=== PATIENT | male | born 1965 | race Caucasian/White ===

== ENCOUNTER 2021-10-12 20:06 | Observation (INO) ==
--- NOTE | 2021-10-12 20:19 | ED.PDOC ---
General ED Provider: Dr. PHIL CASEY Chief Complaint: Chest Pain Stated Complaint: chest pain an hour ago, relieved with 2 NTG, hx CAD, traveling in this area, headlight out on his car, night time, stopped in ER Time Seen by Provider: 10/12/21 20:17 Mode of Arrival: Walk-In Information Source: Patient Exam Limitations: No limitations Nursing and Triage Documentation Reviewed and Agree: Yes Does patient meet sepsis criteria?: No System Inflammatory Response Syndrome: Not Applicable Sepsis Protocol: For patient's 13 years and over: Temp is 96.8 and below OR 101 and greater Pulse >90 BPM Resp >20/minute Acutely Altered Mental Status Are patient's symptoms suggestive of a new infection, such as: -Pneumonia -Skin, Soft Tissue -Endocarditis -UTI -Bone, Joint Infection -Implantable Device -Acute Abdominal Infection -Wound Infection -Meningitis -Blood Stream Catheter Infection -Unknown Cardiovascular Complaint Exam Chest Pain Complaint/Exam Onset: Gradual Duration: few min Symptoms Are: Resolved Timing: Constant Initial Severity: Moderate Current Severity: None Location: Reports Discrete Pain Radiates: Reports None Character: Reports Dull and Aching Aggravating: Reports Movement Alleviating: Reports Rest and Nitro Related History: Reports Similar episode Related Surgical History: Reports Cardiac Cath and PTCA/Stent History of Healthcare-Acquired Pneumonia: Reports No AMI/ACS Risk Factors: Reports Myocardial Infarction and Nitroglycerine use TAD Risk Factors: Reports Hypertension Pulmonary Embolism Risk Factors: Reports None Prior Care for this Complaint: Yes Recent Stress Test: No Recent Echo/LV Function: Yes JVD Present: No Subcutaneous Emphysema Present: No Diminshed Breath Sounds: No Reproducible Chest Wall Pain: No Bilateral Pulses Present: No Unequal Pulses Noted: No Review of Systems Review Of Systems Constitutional: Reports No symptoms Eyes: Reports No symptoms Ears, Nose, Mouth, Throat: Reports No symptoms Respiratory: Reports No symptoms Cardiac: Reports No symptoms GI: Reports No symptoms : Reports No symptoms Musculoskeletal: Reports No symptoms Skin: Reports No symptoms Neurological: Reports No symptoms Endocrine: Reports No symptoms Hematologic/Lymphatic: Reports No symptoms All Other Systems: Reviewed and Negative [facility] Medical History (Updated 10/13/21 @ 00:14 by SONIA DANIELS) Coronary artery arteriosclerosis Diabetes Hypercholesteremia Hypertension Myocardial infarct Family History (Updated 10/13/21 @ 00:11 by SONIA DANIELS) Other No known health problems Social History (Updated 10/13/21 @ 00:15 by SONIA DANIELS) Smoking and tobacco status: Never smoker Alcohol intake: never Substance use type: does not use Surgical History (Updated 10/13/21 @ 00:14 by SONIA DANIELS) History of heart artery stent Physical Exam Physical Exam Appearance: Reports Well-appearing Ill-appearing: None Pain Distress: None Eyes: Reports BRIAN ENT: Reports Oropharynx normal Neck: Supple Respiratory: Reports Airway patent and Breath sounds clear Cardiovascular: Reports RRR and Pulses normal GI/: Reports Nontender and Bowel sounds hyperactive Musculoskeletal: Reports Normal strength and ROM intact Skin: Reports Warm and Dry Neurological: Reports Sensation intact, Motor intact and Alert Psychiatric: Reports Affect appropriate and Mood appropriate Interpretation Radiology Interpretation Radiology Interpretation By: Radiologist Radiology Results: Negative Exam Interpreted: Portable CXR EKG Interpretation Time of EKG #1: 20:15 Rate: Normal Rhythm: Sinus Ectopy: None [place]: NL ST Segment: Normal Critical Care Note Critical Care Note Total Critical Care Time (mins): 0 Course Course Hematology/Chemistry: 10/12/21 20:50 10/12/21 20:50 Orders, Labs, Meds: Lab Review 10/12/21 10/12/21 10/12/21 20:50 20:50 23:05 WBC 5.81 RBC 5.33 Hgb 14.0 Hct 42.1 MCV 79.0 L MCH 26.3 L MCHC 33.3 RDW Coeff of [place] 13.5 Plt Count 205 Immature Gran % (Auto) 0.7 Neut % (Auto) 61.1 Lymph % (Auto) 27.0 [place] % (Auto) 8.1 Eos % (Auto) 2.6 Baso % (Auto) 0.5 Neut # (Auto) 3.6 Lymph # (Auto) 1.6 [place] # (Auto) 0.5 Eos # (Auto) 0.2 Baso # (Auto) 0.0 Immature Gran # (Auto) 0.0 Sodium 128.9 L Potassium 4.27 Chloride 96.1 L Carbon Dioxide 22.2 Anion Gap 14.87 BUN 15.1 Creatinine 0.84 Estimated GFR (MDRD) 95.00 BUN/Creatinine Ratio 17.97 Glucose 552.0 H* Calcium 9.18 Total Bilirubin 0.84 AST 25.6 ALT 18.2 Alkaline Phosphatase 111.8 Troponin I < 0.012 Total Protein 6.95 Albumin 4.42 Globulin 2.53 Albumin/Globulin Ratio 1.74 SARS-CoV-2 Ag (Rapid) Negative Orders Category Date Time Status ADMIT OBSERVATION [PLACE PATIENT OBSERVATION] .TO ADMISSION 10/12/21 22:46 Active MEDSURG (MONITORED BED) EKG-(ED ONLY) Stat CARDIO 10/12/21 20:49 Completed EKG-(IP & OP ONLY) DAILY CARDIO 10/13/21 06:00 Completed EKG-(IP & OP ONLY) DAILY CARDIO 10/14/21 06:00 Ordered OXYGEN Routine CARDIO 10/12/21 22:59 Active ACTIVITY .BR with BRP CARE 10/12/21 22:59 Active IP: INSERT SALINE LOCK ONCE CARE 10/12/21 22:59 Active TELEMETRY MONITORING TELE CARE 10/12/21 22:46 Active TELEMETRY MONITORING TELE CARE 10/12/21 22:59 Completed VITAL SIGNS Q8HR CARE 10/12/21 22:59 Completed CARDIAC DIET DIETARY 10/12/21 Breakfast Ordered ACCUCHECK (ED) [ED ACCUCHECK ASSESSMENT] .ONCE EMERGENCY 10/12/21 22:01 Active CBC W/ AUTO DIFF Stat LAB 10/12/21 20:50 Completed COMPREHENSIVE METABOLIC PANEL Stat LAB 10/12/21 20:50 Completed COVID-19 ANTIGEN TEST Stat LAB 10/12/21 23:05 Completed CREATINE KINASE Q8H LAB 10/13/21 04:57 Completed TROPONIN I Q8H LAB 10/13/21 04:57 Completed TROPONIN I Stat LAB 10/12/21 20:50 Completed URINALYSIS C & S IF INDICATED Stat LAB 10/12/21 22:59 Completed 0.9 % Sodium Chloride [Saline Flush] MEDS 10/13/21 05:00 Active 1 syr IVF Q8HR Acetaminophen [Tylenol] MEDS 10/12/21 22:59 Active 650 mg PO Q4H PRN Atropine Sulfate Inj [Atropine Sulfate Pfs] MEDS 10/12/21 22:59 Active 0.5 mg IVP ONCE PRN Insulin Regular, Human [Humulin R] MEDS 10/12/21 21:20 Discontinued 20 unit IVP ONCE ONE Insulin Regular, Human [Humulin R] MEDS 10/12/21 22:33 Discontinued 20 unit IVP ONCE ONE Nitroglycerin [Nitrostat] MEDS 10/12/21 22:59 Active 0.4 mg SL Q5MIN X 3 DOSES PRN CHEST, 1V AP ONLY Stat RADS 10/12/21 20:49 Completed Medications Generic Name Dose Route Start Last Admin Trade Name Freq PRN Reason Stop Dose Admin Acetaminophen 650 mg 10/12/21 22:59 Acetaminophen 325 Mg Tablet PO Q4H PRN Headache Aspirin 81 mg 10/13/21 09:00 Aspirin 81 Mg Tab.Chew PO DAILY [facility] Atorvastatin Calcium 80 mg 10/13/21 21:00 Atorvastatin Calcium 20 Mg Tablet PO BEDTIME [facility] Atropine Sulfate 0.5 mg 10/12/21 22:59 Atropine Sulfate Inj 1 Mg/10 Ml Disp.Syrin IVP ONCE PRN Symptomatic Bradycardia Carvedilol 6.25 mg 10/13/21 09:00 Carvedilol 6.25 Mg Tablet PO BIDWM [facility] Clopidogrel Bisulfate 75 mg 10/13/21 09:00 Clopidogrel Bisulfate 75 Mg Tablet PO DAILY [facility] Insulin Glargine 52 unit 10/13/21 21:00 Insulin Glargine,Hum.Rec.Anlog 100 Units/Ml SUBCUT BEDTIME [facility] Insulin Human Regular 0 unit 10/13/21 00:04 10/13/21 06:14 Insulin Regular, Human 100 Unit/Ml (3ml) Vial SUBCUT 3 unit PRN PRN Administration Hyperglycemia Protocol Lisinopril 10 mg 10/13/21 09:00 Lisinopril 10 Mg Tablet PO DAILY [facility] Metformin HCl 1,000 mg 10/13/21 09:00 Metformin Hcl 500 Mg Tablet PO BIDWM [facility] Nitroglycerin 0.4 mg 10/12/21 22:59 Nitroglycerin 0.4 Mg Tab.Subl SL Q5MIN X 3 DOSES PRN Chest Pain Sodium Chloride 1 syr 10/13/21 05:00 10/13/21 05:38 0.9% Sodium Chloride 10 Ml Disp.Syrin IVF 1 syr Q8HR ALAYNA Administration Discontinued Medications Generic Name Dose Route Start Last Admin Trade Name Freq PRN Reason Stop Dose Admin Insulin Glargine 20 unit 10/13/21 00:05 10/13/21 00:19 Insulin Glargine,Hum.Rec.Anlog 100 Units/Ml SUBCUT 10/13/21 00:06 20 unit ONCE STA Administration Insulin Human Regular 20 unit 10/12/21 21:20 10/12/21 21:28 Insulin Regular, Human 100 Unit/Ml (3ml) Vial IVP 10/12/21 21:21 20 unit ONCE ONE Administration Insulin Human Regular 20 unit 10/12/21 22:33 10/12/21 22:39 Insulin Regular, Human 100 Unit/Ml (3ml) Vial IVP 10/12/21 22:34 20 unit ONCE ONE Administration Vital Signs: Temp Pulse Resp BP Pulse Ox 10/12/21 23:20 91 H 20 144/82 H 97 10/12/21 20:13 97.0 F L 68 18 153/97 H 98 ELICIA Risk Score ELICIA Risk Score: Risk Score Odds of by 30D 0 0.1 (0.1-0.2) 1 0.3 (0.2-0.3) 2 0.4 (0.3-0.5) 3 0.7 (0.6-0.9) 4 1.2 (1.0-1.5) 5 2.2 (1.9-2.6) 6 3.0 (2.5-3.6) 7 4.8 (3.8-6.1) Discharge Plan Discharge Patient Disposition: PLACED OBSERVATION ED Provider: PHIL CASEY Condition: Stable Physician Progress Note: []work-up neg, except high BS, high risk due to CAD hx, observe for serial enzymes, tx for BS
[2021-10-12 20:57] LABS: BASOPHILS % (AUTO) 0.5 % (0.0-3.0); EOSINOPHILS # (AUTO) 0.2 K/ul (0.0-0.7); EOSINOPHILS % (AUTO) 2.6 % (0.0-7.0); HEMATOCRIT 42.1 % (42.0-52.0); IMMATURE GRANULOCYTE % (AUTO) 0.7 % (0.0-5.0); LYMPHOCYTES # (AUTO) 1.6 K/uL (0.60-3.4); MEAN CORPUSCULAR HEMOGLOBIN 26.3 pg (27.0-31.0); MEAN CORPUSCULAR HGB CONC 33.3 (31.8-35.4); MONOCYTES # (AUTO) 0.5 K/uL (0.4-2.0); MONOCYTES % (AUTO) 8.1 (0-10); NEUTROPHILS # (AUTO) 3.6 K/ul (2.0-6.9); NEUTROPHILS % (AUTO) 61.1 % (42.2-75.2); PLATELET COUNT 205 10^3/uL (140-440); RDW COEFFICIENT OF VARIATION 13.5 % (11.6-14.8); RED BLOOD COUNT 5.33 10^6/ul (4.70-6.10); WHITE BLOOD COUNT 5.81 K/ul (4.2-10.2)
[2021-10-12 21:07] LABS: ALANINE AMINOTRANSFERASE 18.2 U/L (0-50); ALBUMIN 4.42 g/dL (3.5-5.0); ALKALINE PHOSPHATASE 111.8 U/L (38-126); ASPARTATE AMINO TRANSFERASE 25.6 U/L (17-59); BILIRUBIN,TOTAL 0.84 mg/dL (0.2-1.3); BLOOD UREA NITROGEN 15.1 mg/dL (9-20); CALCIUM 9.18 mg/dL (8.4-10.2); CARBON DIOXIDE 22.2 mmol/L (22-30.0); CHLORIDE 96.1 mmol/L (98-107); CREATININE 0.84 mg/dL (0.60-1.10); POTASSIUM 4.27 mmol/L (3.5-5.1); SODIUM 128.9 mmol/L (134.5-145); TOTAL PROTEIN 6.95 g/dL (6.3-8.2)
--- NOTE | 2021-10-12 21:13 | DI ---
EXAMINATION: AP chest radiograph. HISTORY: Chest pain COMPARISON: 10/09/2021 FINDINGS: No focal consolidation, pleural effusion or pneumothorax is identified. The cardiomediastinal silhouette is within normal limits. Coronary artery stents are suspected. IMPRESSION: No acute cardiopulmonary findings.
[2021-10-12 21:19] LABS: TROPONIN I < 0.012 ng/ml (0.0000-0.120)
[2021-10-12] MEDS ORDERED: HUMULIN R IVP ONE ×2 (21:20→22:33)
[2021-10-12] MEDS ORDERED: TYLENOL PO PRN (22:59)
[2021-10-12] MEDS ORDERED: NITROSTAT SL PRN (22:59)
[2021-10-12] MEDS ORDERED: ATROPINE SULFATE PFS IVP PRN (22:59)
[2021-10-13] MEDS ORDERED: LANTUS SUBCUT STA (00:05)
[2021-10-13 00:28] VITALS: BMI 37.9
[2021-10-13 01:10] LABS: BILIRUBIN,URINE Negative (NEGATIVE); CLARITY,URINE Clear (CLEAR); COLOR,URINE Yellow (YELLOW); GLUCOSE, URINE (UA) 2+ (NEGATIVE); KETONES,URINE Negative (NEGATIVE); LEUKOCYTE ESTERASE ,URINE Negative (NEGATIVE); NITRITE,URINE Negative (NEGATIVE); PROTEIN,URINE Negative (NEGATIVE); URINE, BLOOD Negative (NEGATIVE); UROBILINOGEN,URINE 0.2 (0.2)
[2021-10-13 05:35] LABS: CREATINE KINASE 44.1 U/L (55-170)
[2021-10-13 05:43] LABS: TROPONIN I < 0.012 ng/ml (0.0000-0.120)
[2021-10-13] MEDS: HUMULIN R SUBCUT PRN ×4 (06:14→20:13)
[2021-10-13] MEDS: PLAVIX PO SCH (09:32)
[2021-10-13] MEDS: COREG PO SCH ×2 (09:32→16:59)
[2021-10-13] MEDS: ASPIRIN CHEWABLE PO SCH (09:32)
[2021-10-13] MEDS: ZESTRIL PO SCH (09:32)
[2021-10-13] MEDS: GLUCOPHAGE PO SCH ×2 (09:32→16:59)
--- NOTE | 2021-10-13 14:12 | PCM.PROG ---
Date Seen by Provider: 10/13/21 Subjective: pt stable at rest w/o chest pain, extensive cardiac hx of stents, serial troponins not elevated, Dr Cedeño consulted Objective: Vitals: T=96.3 F, P=83, R=18, AS=358/89, SPO2=98 HEENT: []conjunctiva clear Neck: []supple Lungs: [] clear CVS: []rrr Abdomen: []soft and nontender Extremities: []alfredito Neurological: []alert and oriented Skin: []warm and dry Lab/Tests/Diagnostic Imaging: [] Na 128 Plan: await sestamibi test to evaluate cardiac function care to Dr Duke at 19:00
--- NOTE | 2021-10-13 14:54 | CONS ---
DATE OF CONSULTATION: 10/13/21 REASON FOR CONSULTATION: Chest pain . HISTORY OF PRESENT ILLNESS: 56 year old white male was hospitalized on 10/12/21 with history of having chest pain. The patient's chest pain lasted 10 minutes. He was driving through [place], resident of near [place]. Pain was described as dull aches. No association with shortness of breath, sweating. Took two nitroglycerin and helped him. The patient was hospitalized at [facility] with complaint of chest pain according to him he was passing through and he saw a doctor that he had seen him in his area before. He got admitted to this doctor under observation, records reviewed. The patient was hospitalized on 10/04/21 the chest pain with stable angina. His workup was negative according to him the echo was done which showed ejection fraction of 52%. After his heart attack he ejection fraction was known to be 40%. The patient is retaking his medication for past few weeks. He had stopped all his medications. The patient says that he started taking his insulin last night. REVIEW OF SYSTEMS: CONSTITUTIONAL: No night sweats. No fatigue, malaise, lethargy. No fever or chills. HEENT: Eyes: No visual changes. No eye pain. No eye discharge. ENT: No sinus drainage. No epistaxis. No sinus pain. No sore throat. No odynophagia. No ear pain. No congestion. RESPIRATORY: No cough, no congestion. No hemoptysis. No shortness of breath. CARDIOVASCULAR: No angina symptoms. No CHF symptoms. No atypical chest pain for CAD. No palpitations. No orthopnea. GASTROINTESTINAL: No abdominal pain. No nausea or vomiting. No diarrhea or constipation. No hematemesis. No hematochezia. GENITOURINARY: No urgency. No frequency. No dysuria. No hematuria. No obstructive symptoms. No discharge. No pain. No significant abnormal bleeding. MUSCULOSKELETAL: No musculoskeletal pain. No joint swelling. NEUROLOGICAL: No headache. No neck pain. No syncope. No seizures. No dizziness. PSYCHIATRIC: Not anxious. No depression. No suicidal thoughts. No homicidal thoughts. SKIN: No rash. No lesions. No wounds. ENDOCRINE: No unexplained weight loss. No weight gain. HEMATOLOGIC/LYMPHATIC: No anemia. No purpura. No petechiae. No prolonged or excessive bleeding. No palpable lymph nodes. MEDICATIONS: Aspirin Atorvastatin Carvedilol Plavix Lantus Lisinopril Metformin ALLERGIES: None PAST MEDICAL HISTORY: History of [place] 2011 with 9 stents last 10 years Diabetes Mellitus for number of years Hypertension Dyslipidemia PAST SURGICAL HISTORY: SOCIAL/PERSONAL/FAMILY HISTORY: The patient is living by himself. Nonsmoker. No alcohol abuse. He does all activity of daily living. He had given up to go to any doctor last year or so. Doesn't have any primary doctor. PHYSICAL EXAMINATION: GENERAL: The patient is oriented to time, place and person. VITAL SIGNS: Temperature 96.8, pulse 70, respiratory rate 18, blood pressure 134/90 and pulse ox 95% on room air. BMI 38. HEENT: Head normocephalic, atraumatic. Eyes: Extraocular muscles are intact. Pupils are equal, round and reactive to light and accommodation. Ears: No lesions. Nose appeared normal. Throat: No exudate or erythema. NECK: Supple. No JVD, no carotid bruit. No lymphadenopathy or thyromegaly. LUNGS: Clear to auscultation. Percussion note normal. Chest symmetrical. HEART: S1, S2, no S3. No murmurs. No cyanosis or clubbing. No ascites. Pulses: Dorsalis pedis and posterior tibial pulses +1 to +2 bilaterally. ABDOMEN: Soft. Nontender. Bowel sounds active. No CVA tenderness. No mass felt. EXTREMITIES: No edema. Full range of motion of all extremities, equal. NEUROLOGIC: No focal deficit. Cranial nerves II through XII are grossly intact. No headache, no double vision or headache. SKIN: Not dry. Intact. Turgor - normal. LYMPHATIC: No palpable lymph nodes/no lymphedema. MUSCULOSKELETAL: Normal joints with no swelling. Muscle tone is normal. LABS: EKG sinus rhythm, anteroseptal wall AZ, inferior wall [place] times three unchanged. Sodium 130 from glucose being approximately 550. creatinine 0.8, BUN 15. liver profile negative. SARS negative. Hgb 14, hct 42, WBC differential normal. Cardiac markers are all negative. Rhythm strips examined shows sinus rhythm with no new ST-T wave changes noted. ASSESSMENT: 1. Chest pain equivocal could be noncardiac 2. Coronary artery disease with history of AZ with multiple stents, 10 years 3. Hypertension 4. Dyslipidemia 5. Obesity, BMI 38 6. Noncompliance of all aspects of medical care. No primary MD RECOMMENDATIONS: 1. At present time the patient's condition is stable 2. Continue all the medications that is Aspirin 81mg, Atorvastatin 80mg, Carvedilol 6.25mg, Plavix 75mg, Lantus Insulin 52 units, Lisinopril 10, Metformin 1,000mg twice a day 3. Echo cardiogram was done a week ago and records obtained and reviewed the partial records with no echocardiographic findings available at present time 4. All records from [facility] that are available right now are reviewed which are partial records. 5. The patient's workup was negative for any acute event at [facility]. 6. The patient advised to lose weight, BMI 38. Diet discussed 7. The patient strongly advised to continue all his medication on a regular basis 8. Case discussed with Dr. Daniel and I explained to him that the patient's cardiac workup so far is negative. No acute myocardial event. The patient needs to have stress echo sestamibi nuclear scan done which is not available at this hospital until coming Tuesday that is three days from now. I don't think that I would want him to be discharged without having some kind of workup done. Explained to him that it may not be a bad idea to look around for his transfer to a hospital where further workup could be done and he is going to try to call around nearest hospitals for possible transfers. In the mean time we are going to schedule him for stress sestamibi for coming Tuesday. We will do lipid profile and TSH for the morning. PROGNOSIS: Not good considering the patient's noncompliance. The patient says that as soon as he goes home near [place] he is going to try and kind a doctor on a list of doctors that is given to him by medicaid. The patient seems to be reliable but noncompliant. Thanks for referral, will follow. WILLIAM
[2021-10-13] MEDS: NYSTATIN CREAM TP SCH (20:13)
[2021-10-13] MEDS ORDERED: LANTUS SUBCUT SCH (21:00)
[2021-10-13] MEDS ORDERED: LIPITOR PO SCH (21:00)
[2021-10-14 05:03] VITALS: BP 128/82; TEMP 97.8
[2021-10-14 05:10] LABS: BASOPHILS # (AUTO) 0.1 K/uL (0-0.2); BASOPHILS % (AUTO) 0.8 % (0.0-3.0); EOSINOPHILS # (AUTO) 0.2 K/ul (0.0-0.7); EOSINOPHILS % (AUTO) 2.7 % (0.0-7.0); HEMOGLOBIN 13.8 g/dl (14.0-18.0); IMMATURE GRANULOCYTE % (AUTO) 0.3 % (0.0-5.0); LYMPHOCYTES # (AUTO) 1.8 K/uL (0.60-3.4); LYMPHOCYTES % (AUTO) 28.6 (10.0-50.0); MEAN CORPUSCULAR HEMOGLOBIN 26.1 pg (27.0-31.0); MEAN CORPUSCULAR HGB CONC 32.9 (31.8-35.4); MEAN CORPUSCULAR VOLUME 79.5 fl (80.0-94.0); MONOCYTES # (AUTO) 0.6 K/uL (0.4-2.0); NEUTROPHILS # (AUTO) 3.7 K/ul (2.0-6.9); NEUTROPHILS % (AUTO) 57.6 % (42.2-75.2); PLATELET COUNT 177 10^3/uL (140-440); RDW COEFFICIENT OF VARIATION 13.9 % (11.6-14.8); RED BLOOD COUNT 5.28 10^6/ul (4.70-6.10); WHITE BLOOD COUNT 6.37 K/ul (4.2-10.2)
[2021-10-14 05:28] LABS: ALANINE AMINOTRANSFERASE 15.7 U/L (0-50); ALBUMIN 4.06 g/dL (3.5-5.0); ALKALINE PHOSPHATASE 84.1 U/L (38-126); ASPARTATE AMINO TRANSFERASE 19.8 U/L (17-59); BILIRUBIN,TOTAL 0.62 mg/dL (0.2-1.3); BLOOD UREA NITROGEN 14.4 mg/dL (9-20); CALCIUM 8.96 mg/dL (8.4-10.2); CARBON DIOXIDE 26.1 mmol/L (22-30.0); CHLORIDE 102.4 mmol/L (98-107); CHOLESTEROL 155.8 mg/dL (0-200); CREATININE 0.8 mg/dL (0.60-1.10); GLUCOSE 226.4 mg/dL (74-106); HDL CHOLESTEROL 42.6 mg/dL (35-60); POTASSIUM 3.89 mmol/L (3.5-5.1); SODIUM 136.5 mmol/L (134.5-145); TOTAL PROTEIN 6.7 g/dL (6.3-8.2); TRIGLYCERIDES 111.9 mg/dL (0-150)
[2021-10-14] MEDS: HUMULIN R SUBCUT PRN (06:00)
[2021-10-14] MEDS: GLUCOPHAGE PO SCH (08:27)
[2021-10-14] MEDS: ASPIRIN CHEWABLE PO SCH (08:27)
[2021-10-14] MEDS: ZESTRIL PO SCH (08:28)
[2021-10-14] MEDS: PLAVIX PO SCH (08:28)
[2021-10-14] MEDS: COREG PO SCH (08:28)
[2021-10-14] MEDS: NYSTATIN CREAM TP SCH (08:30)
--- NOTE | 2021-10-14 08:35 | PCM.DC ---
Final Diagnosis: Unstable Angina Resolved Hypothermia- Resolved Uncontrolled diabetes due to non compliance to medications. Physical Exam Appearance: Obese Ill-appearing: None Pain Distress: None Eyes: Conjunctiva clear ENT: Nose normal Neck: Not Examined Respiratory: Airway patent, Breath sounds clear and Breath sounds equal Cardiovascular: RRR, Pulses normal and No rub GI/: Not Examined Musculoskeletal: ROM intact and No edema Skin: Warm and Dry Neurological: Motor intact, Alert and Oriented Psychiatric: Affect appropriate and Mood appropriate Reason for Hospitalization: Chest pain to Rule out Acute [place], Hyponatremia Prognosis/Condition at Discharge: Patient is a 56 year old who has significant history of CAD with Multiple stents who was seen in the ER with Complaints of chest pain. Due to his prior history of CAD he was admitted to rule out OH and to get golf course superintendent consultation. He was seen by cardiology and planned for sestamibitest in 2 days. 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 He is in the process of moving to [place] and needs a new golf course superintendent in the Area. Denies any chest pain in the past 24 hours and his blood glucose and labs are now normal. He states that he has now refilled all his Medications and isready to be discahrged with follow up with PCP and his Stress test this Tuesday. He has been advised to return to the ER if he starts having chest pain. Medications at Discharge: Ambulatory Orders Medication Instructions Recorded aspirin 81 mg chewable tablet 81 mg PO DAILY 10/12/21 atorvastatin 80 mg tablet 80 mg PO BEDTIME 10/12/21 carvedilol 6.25 mg tablet (Coreg) 6.25 mg PO BID 10/12/21 clopidogrel 75 mg tablet (Plavix) 75 mg PO DAILY 10/12/21 insulin glargine 100 unit/mL 52 unit SUBCUT BEDTIME 10/12/21 subcutaneous cartridge lisinopril 10 mg tablet 10 mg PO DAILY 10/12/21 metformin 1,000 mg tablet 1,000 mg PO BID 10/12/21 Lab/Diagnostics: Laboratory Tests 10/12/21 10/12/21 10/12/21 20:50 20:50 23:05 WBC 5.81 RBC 5.33 Hgb 14.0 Hct 42.1 MCV 79.0 L MCH 26.3 L MCHC 33.3 RDW Coeff of [place] 13.5 Plt Count 205 Immature Gran % (Auto) 0.7 Neut % (Auto) 61.1 Lymph % (Auto) 27.0 [place] % (Auto) 8.1 Eos % (Auto) 2.6 Baso % (Auto) 0.5 Neut # (Auto) 3.6 Lymph # (Auto) 1.6 [place] # (Auto) 0.5 Eos # (Auto) 0.2 Baso # (Auto) 0.0 Immature Gran # (Auto) 0.0 Sodium 128.9 L Potassium 4.27 Chloride 96.1 L Carbon Dioxide 22.2 Anion Gap 14.87 BUN 15.1 Creatinine 0.84 Estimated GFR (MDRD) 95.00 BUN/Creatinine Ratio 17.97 Glucose 552.0 H* Hemoglobin A1c Calcium 9.18 Total Bilirubin 0.84 AST 25.6 ALT 18.2 Alkaline Phosphatase 111.8 Total Creatine Kinase Troponin I < 0.012 Total Protein 6.95 Albumin 4.42 Globulin 2.53 Albumin/Globulin Ratio 1.74 Triglycerides Cholesterol LDL Cholesterol, Calc VLDL Cholesterol HDL Cholesterol Cholesterol/HDL Ratio TSH Free T4 Urine Color Urine Clarity Urine pH Ur Specific [place] Urine Protein Urine Glucose (UA) Urine Ketones Urine Blood Urine Nitrite Urine Bilirubin Urine Urobilinogen Ur Leukocyte Esterase SARS-CoV-2 Ag (Rapid) Negative 10/13/21 10/13/21 10/13/21 01:04 04:57 04:57 WBC RBC Hgb Hct MCV MCH MCHC RDW Coeff of [place] Plt Count Immature Gran % (Auto) Neut % (Auto) Lymph % (Auto) [place] % (Auto) Eos % (Auto) Baso % (Auto) Neut # (Auto) Lymph # (Auto) [place] # (Auto) Eos # (Auto) Baso # (Auto) Immature Gran # (Auto) Sodium Potassium Chloride Carbon Dioxide Anion Gap BUN Creatinine Estimated GFR (MDRD) BUN/Creatinine Ratio Glucose Hemoglobin A1c 10.56 H Calcium Total Bilirubin AST ALT Alkaline Phosphatase Total Creatine Kinase 44.1 L Troponin I < 0.012 Total Protein Albumin Globulin Albumin/Globulin Ratio Triglycerides Cholesterol LDL Cholesterol, Calc VLDL Cholesterol HDL Cholesterol Cholesterol/HDL Ratio TSH Free T4 Urine Color Yellow Urine Clarity Clear Urine pH 5.0 Ur Specific [place] 1.015 Urine Protein Negative Urine Glucose (UA) 2+ H Urine Ketones Negative Urine Blood Negative Urine Nitrite Negative Urine Bilirubin Negative Urine Urobilinogen 0.2 Ur Leukocyte Esterase Negative SARS-CoV-2 Ag (Rapid) 05/17/22 05/17/22 05/18/22 04:57 04:57 04:48 WBC 6.37 RBC 5.28 Hgb 13.8 L Hct 42.0 MCV 79.5 L MCH 26.1 L MCHC 32.9 RDW Coeff of [place] 13.9 Plt Count 177 Immature Gran % (Auto) 0.3 Neut % (Auto) 57.6 Lymph % (Auto) 28.6 [place] % (Auto) 10.0 Eos % (Auto) 2.7 Baso % (Auto) 0.8 Neut # (Auto) 3.7 Lymph # (Auto) 1.8 [place] # (Auto) 0.6 Eos # (Auto) 0.2 Baso # (Auto) 0.1 Immature Gran # (Auto) 0.0 Sodium Potassium Chloride Carbon Dioxide Anion Gap BUN Creatinine Estimated GFR (MDRD) BUN/Creatinine Ratio Glucose Hemoglobin A1c Calcium Total Bilirubin AST ALT Alkaline Phosphatase Total Creatine Kinase Troponin I Total Protein Albumin Globulin Albumin/Globulin Ratio Triglycerides Cholesterol LDL Cholesterol, Calc VLDL Cholesterol HDL Cholesterol Cholesterol/HDL Ratio TSH 2.720 Free T4 1.21 Urine Color Urine Clarity Urine pH Ur Specific [place] Urine Protein Urine Glucose (UA) Urine Ketones Urine Blood Urine Nitrite Urine Bilirubin Urine Urobilinogen Ur Leukocyte Esterase SARS-CoV-2 Ag (Rapid) 10/14/21 04:48 WBC RBC Hgb Hct MCV MCH MCHC RDW Coeff of [place] Plt Count Immature Gran % (Auto) Neut % (Auto) Lymph % (Auto) [place] % (Auto) Eos % (Auto) Baso % (Auto) Neut # (Auto) Lymph # (Auto) [place] # (Auto) Eos # (Auto) Baso # (Auto) Immature Gran # (Auto) Sodium 136.5 Potassium 3.89 Chloride 102.4 Carbon Dioxide 26.1 Anion Gap 11.89 BUN 14.4 Creatinine 0.80 Estimated GFR (MDRD) 100.00 BUN/Creatinine Ratio 18.00 Glucose 226.4 H Hemoglobin A1c Calcium 8.96 Total Bilirubin 0.62 AST 19.8 ALT 15.7 Alkaline Phosphatase 84.1 D Total Creatine Kinase Troponin I Total Protein 6.70 Albumin 4.06 Globulin 2.64 Albumin/Globulin Ratio 1.53 Triglycerides 111.9 Cholesterol 155.8 LDL Cholesterol, Calc 91 VLDL Cholesterol 22 HDL Cholesterol 42.6 Cholesterol/HDL Ratio 3.7 L TSH Free T4 Urine Color Urine Clarity Urine pH Ur Specific [place] Urine Protein Urine Glucose (UA) Urine Ketones Urine Blood Urine Nitrite Urine Bilirubin Urine Urobilinogen Ur Leukocyte Esterase SARS-CoV-2 Ag (Rapid) Education Provided to Patient and Family: To return to the ER if he has more chest pain. take medications as prescribed. Follow-ups: With PCP and the Cardiology Department of [facility] test this tuesday. Discharge Disposition: Home Hospital Course: Feels better, Symptoms of chest pain resolved. Blood glucose controlled Plan: Discharge home Follow up as above
== END 2021-10-14 12:40 | disposition home or self-care (01) ==
LOC: ED 20:06 → MEDSURG A 20:06
PROVIDERS: ADMIT Emergency Medicine; ATTEND Internal Medicine Geriatric Medicine
DX: Z68.38 Body mass index [BMI] 38.0-38.9, adult; Z79.01 Long term (current) use of anticoagulants; R07.9 Chest pain, unspecified; I10 Essential (primary) hypertension; E11.65 Type 2 diabetes mellitus with hyperglycemia; E78.00 Pure hypercholesterolemia, unspecified; Z95.5 Presence of coronary angioplasty implant and graft; Z20.822 Contact with and (suspected) exposure to COVID-19; Z79.899 Other long term (current) drug therapy; I25.2 Old myocardial infarction; I25.10 Atherosclerotic heart disease of native coronary artery without angina pectoris

== ENCOUNTER 2022-03-15 19:20 | Observation (INO) ==
--- NOTE | 2022-03-15 19:23 | ED.PDOC ---
General ED Provider: Dr. PHIL CASEY Chief Complaint: Chest Pain Stated Complaint: Chest pain earlier, relieved with 2 NTG. Hx CAD. (MT, stents). Lives elsewhere, passing through this area. No other sx. DM with poor control. Nonsmoker. Out of plavix. Would like admitted here overnight. Time Seen by Provider: 03/15/22 19:23 Mode of Arrival: Walk-In Information Source: Patient Exam Limitations: No limitations Nursing and Triage Documentation Reviewed and Agree: Yes Does patient meet sepsis criteria?: No System Inflammatory Response Syndrome: Not Applicable Sepsis Protocol: For patient's 13 years and over: Temp is 96.8 and below OR 101 and greater Pulse >90 BPM Resp >20/minute Acutely Altered Mental Status Are patient's symptoms suggestive of a new infection, such as: -Pneumonia -Skin, Soft Tissue -Endocarditis -UTI -Bone, Joint Infection -Implantable Device -Acute Abdominal Infection -Wound Infection -Meningitis -Blood Stream Catheter Infection -Unknown Cardiovascular Complaint Exam Chest Pain Complaint/Exam Onset: Gradual Duration: few hrs ago Symptoms Are: Still present Timing: Intermittent Length of Chest Pain Episodes: brief Initial Severity: Moderate Current Severity: None Location: Reports Midsternal Pain Radiates: Reports None Character: Reports Dull and Tightness Aggravating: Reports None Alleviating: Reports None Associated Signs and Symptoms: Denies Diaphoresis, Nausea, Vomiting, Fever, Palpitations, Cough, Hemoptysis, Back pain, Abdominal pain, Dizziness, Short of air, Calf pain or Calf swelling Related History: Reports Similar episode and Current Beta H[place] Related Surgical History: Reports Cardiac Cath and PTCA/Stent History of Healthcare-Acquired Pneumonia: Reports No AMI/ACS Risk Factors: Reports Myocardial Infarction, Diabetes and Nitroglycerine use TAD Risk Factors: Reports Hypertension Prior Care for this Complaint: Yes Recent Stress Test: No Recent Echo/LV Function: No JVD Present: No Subcutaneous Emphysema Present: No Diminshed Breath Sounds: No Reproducible Chest Wall Pain: No Bilateral Pulses Present: Yes Unequal Pulses Noted: No Differential Diagnoses: Acute MT, ACS, Stable Angina and Unstable Angina Review of Systems Review Of Systems Constitutional: Reports No symptoms Eyes: Reports No symptoms Ears, Nose, Mouth, Throat: Reports No symptoms Respiratory: Reports No symptoms Cardiac: Reports Chest pain GI: Reports No symptoms : Reports No symptoms Musculoskeletal: Reports No symptoms Skin: Reports No symptoms Neurological: Reports No symptoms Endocrine: Reports No symptoms Hematologic/Lymphatic: Reports No symptoms All Other Systems: Reviewed and Negative [facility] Medical History Coronary artery arteriosclerosis Diabetes Hypercholesteremia Hypertension Myocardial infarct Family History Other No known health problems Social History Smoking and tobacco status: Never smoker Alcohol intake: never Substance use type: does not use Surgical History History of heart artery stent Physical Exam Physical Exam Appearance: Reports Well-appearing Ill-appearing: None Pain Distress: None Eyes: Reports BRIAN ENT: Reports Oropharynx normal Neck: Supple Respiratory: Reports Airway patent and Breath sounds clear Cardiovascular: Reports RRR and Pulses normal GI/: Reports Soft and Nontender Musculoskeletal: Reports Normal strength and ROM intact Skin: Reports Warm and Dry Neurological: Reports Sensation intact, Motor intact and Alert Psychiatric: Reports Affect appropriate and Mood appropriate Interpretation Radiology Interpretation Radiology Interpretation By: Radiologist Radiology Results: Negative Exam Interpreted: Portable CXR EKG Interpretation Time of EKG #1: 19:19 Rate: Normal Rhythm: Sinus Ectopy: None [place]: NL ST Segment: Normal Interpretation: Q waves inf and leads Critical Care Note Critical Care Note Total Critical Care Time (mins): 0 Course Course Hematology/Chemistry: 03/15/22 19:23 03/15/22 19:23 Orders, Labs, Meds: Lab Review 03/15/22 03/15/22 03/15/22 19:23 19:23 21:00 WBC 6.41 RBC 5.38 Hgb 13.1 L Hct 40.6 L MCV 75.5 L MCH 24.3 L MCHC 32.3 RDW Coeff of [place] 13.8 Plt Count 241 Immature Gran % (Auto) 0.3 Neut % (Auto) 57.7 Lymph % (Auto) 28.5 [place] % (Auto) 9.7 Eos % (Auto) 3.0 Baso % (Auto) 0.8 Neut # (Auto) 3.7 Lymph # (Auto) 1.8 [place] # (Auto) 0.6 Eos # (Auto) 0.2 Baso # (Auto) 0.1 Immature Gran # (Auto) 0.0 Sodium 135.8 Potassium 4.02 Chloride 100.1 Carbon Dioxide 25.9 Anion Gap 13.82 BUN 15.6 Creatinine 0.82 Estimated GFR (MDRD) 98.00 BUN/Creatinine Ratio 19.02 Glucose 429.3 H Calcium 9.39 Total Bilirubin 0.59 AST 24.9 ALT 21.4 Alkaline Phosphatase 125.2 Total Creatine Kinase Troponin I < 0.012 Total Protein 7.73 Albumin 4.56 Globulin 3.17 Albumin/Globulin Ratio 1.43 SARS CoV-2 RNA Rapid SHERYL Negative 03/15/22 21:18 WBC RBC Hgb Hct MCV MCH MCHC RDW Coeff of [place] Plt Count Immature Gran % (Auto) Neut % (Auto) Lymph % (Auto) [place] % (Auto) Eos % (Auto) Baso % (Auto) Neut # (Auto) Lymph # (Auto) [place] # (Auto) Eos # (Auto) Baso # (Auto) Immature Gran # (Auto) Sodium Potassium Chloride Carbon Dioxide Anion Gap BUN Creatinine Estimated GFR (MDRD) BUN/Creatinine Ratio Glucose Calcium Total Bilirubin AST ALT Alkaline Phosphatase Total Creatine Kinase 51.7 L Troponin I < 0.012 Total Protein Albumin Globulin Albumin/Globulin Ratio SARS CoV-2 RNA Rapid SHERYL Orders Category Date Time Status ADMIT OBSERVATION [PLACE PATIENT OBSERVATION] .TO ADMISSION 03/15/22 21:29 Active MEDSURG (MONITORED BED) EKG-(ED ONLY) Stat CARDIO 03/15/22 19:48 Completed EKG-(IP & OP ONLY) DAILY CARDIO 03/16/22 06:00 Ordered EKG-(IP & OP ONLY) DAILY CARDIO 03/17/22 06:00 Ordered EKG-(IP & OP ONLY) Stat CARDIO 03/15/22 21:05 Ordered OXYGEN Routine CARDIO 03/15/22 21:05 Ordered ACTIVITY .BR with BRP CARE 03/15/22 21:05 Active IP: INSERT SALINE LOCK ONCE CARE 03/15/22 21:05 Active TELEMETRY MONITORING TELE CARE 03/15/22 21:30 Active VITAL SIGNS Q8HR CARE 03/15/22 21:05 Completed CARDIAC DIET DIETARY 03/15/22 Breakfast Ordered CBC W/ AUTO DIFF Stat LAB 03/15/22 19:23 Completed COMPREHENSIVE METABOLIC PANEL Stat LAB 03/15/22 19:23 Completed CREATINE KINASE Q8H LAB 03/15/22 21:18 Completed CREATINE KINASE Q8H LAB 03/16/22 05:15 Ordered SARS COV-2 RNA RAPID SHERYL Stat LAB 03/15/22 21:00 Completed TROPONIN I Q8H LAB 03/15/22 21:18 Completed TROPONIN I Q8H LAB 03/16/22 05:15 Ordered TROPONIN I Stat LAB 03/15/22 19:23 Completed URINALYSIS C & S IF INDICATED Stat LAB 03/15/22 21:55 Completed 0.9 % Sodium Chloride [Saline Flush] MEDS 03/16/22 05:00 Active 1 syr IVF Q8HR Acetaminophen [Tylenol] MEDS 03/15/22 21:05 Active 650 mg PO Q4H PRN Atropine Sulfate Inj [Atropine Sulfate Pfs] MEDS 03/15/22 21:05 Active 0.5 mg IVP ONCE PRN Clopidogrel Bisulfate [Plavix] MEDS 03/15/22 19:59 Discontinued 75 mg PO ONCE ONE Insulin Regular, Human [Humulin R] MEDS 03/15/22 20:40 Discontinued 12 unit IVP ONCE ONE Nitroglycerin [Nitrostat] MEDS 03/15/22 21:05 Active 0.4 mg SL Q5MIN X 3 DOSES PRN CHEST, 1V AP ONLY Stat RADS 03/15/22 19:48 Completed Medications Generic Name Dose Route Start Last Admin Trade Name Clarisa PRN Reason Stop Dose Admin Acetaminophen 650 mg 03/15/22 21:05 Acetaminophen 325 Mg Tablet PO Q4H PRN Headache Aspirin 81 mg 03/16/22 09:00 Aspirin 81 Mg Tab.Chew PO DAILY [facility] Atorvastatin Calcium 80 mg 03/16/22 21:00 Atorvastatin Calcium 20 Mg Tablet PO BEDTIME ALAYNA Atropine Sulfate 0.5 mg 03/15/22 21:05 Atropine Sulfate Inj 1 Mg/10 Ml Disp.Syrin IVP ONCE PRN Symptomatic Bradycardia Carvedilol 6.25 mg 03/16/22 09:00 Carvedilol 6.25 Mg Tablet PO BID [facility] Clopidogrel Bisulfate 75 mg 03/16/22 09:00 Clopidogrel Bisulfate 75 Mg Tablet PO DAILY [facility] Lisinopril 20 mg 03/16/22 09:00 Lisinopril 10 Mg Tablet PO DAILY ALAYNA Nitroglycerin 0.4 mg 03/15/22 21:05 Nitroglycerin 0.4 Mg Tab.Subl SL Q5MIN X 3 DOSES PRN Chest Pain Sodium Chloride 1 syr 03/16/22 05:00 0.9% Sodium Chloride 10 Ml Disp.Syrin IVF Q8HR ALAYNA Discontinued Medications Generic Name Dose Route Start Last Admin Trade Name Clarisa PRN Reason Stop Dose Admin Clopidogrel Bisulfate 75 mg 03/15/22 19:59 03/15/22 20:06 Clopidogrel Bisulfate 75 Mg Tablet PO 03/15/22 20:00 75 mg ONCE ONE Administration Insulin Human Regular 12 unit 03/15/22 20:40 03/15/22 20:53 Insulin Regular, Human 100 Unit/Ml (3ml) Vial IVP 03/15/22 20:41 12 unit ONCE ONE Administration Vital Signs: Temp Pulse Resp BP Pulse Ox 03/15/22 19:20 98 F 81 20 152/94 H 100 ELICIA Risk Score Age >/= 65: No >/= 3 CAD Risk Factors: Yes Known CAD (Stenosis >/= 50%): Yes ASA Use in Past 7 Days: Yes Severe Angina (>/= 2 episodes in 24 hours): No EKG ST Changes >/= 0.5mm: No Postive Cardiac Marker: No ELICIA Total Score: 3 ELICIA Risk Score: Risk Score Odds of by 30D 0 0.1 (0.1-0.2) 1 0.3 (0.2-0.3) 2 0.4 (0.3-0.5) 3 0.7 (0.6-0.9) 4 1.2 (1.0-1.5) 5 2.2 (1.9-2.6) 6 3.0 (2.5-3.6) 7 4.8 (3.8-6.1) Discharge Plan Discharge Patient Disposition: ADMITTED INPATIENT Discharge Problem: Chest pain Did you review [place] RADIOLOGY ASST?: Not Applicable ED Provider: PHIL CASEY Condition: Stable Physician Progress Note: []Admit with R/O MT protocol.
[2022-03-15 19:51] LABS: BASOPHILS # (AUTO) 0.1 K/uL (0-0.2); BASOPHILS % (AUTO) 0.8 % (0.0-3.0); EOSINOPHILS # (AUTO) 0.2 K/ul (0.0-0.7); HEMATOCRIT 40.6 % (42.0-52.0); HEMOGLOBIN 13.1 g/dl (14.0-18.0); IMMATURE GRANULOCYTE % (AUTO) 0.3 % (0.0-5.0); LYMPHOCYTES # (AUTO) 1.8 K/uL (0.60-3.4); LYMPHOCYTES % (AUTO) 28.5 (10.0-50.0); MEAN CORPUSCULAR HEMOGLOBIN 24.3 pg (27.0-31.0); MEAN CORPUSCULAR HGB CONC 32.3 (31.8-35.4); MEAN CORPUSCULAR VOLUME 75.5 fl (80.0-94.0); MONOCYTES # (AUTO) 0.6 K/uL (0.4-2.0); MONOCYTES % (AUTO) 9.7 (0-10); NEUTROPHILS # (AUTO) 3.7 K/ul (2.0-6.9); NEUTROPHILS % (AUTO) 57.7 % (42.2-75.2); PLATELET COUNT 241 10^3/uL (140-440); RDW COEFFICIENT OF VARIATION 13.8 % (11.6-14.8); RED BLOOD COUNT 5.38 10^6/ul (4.70-6.10); WHITE BLOOD COUNT 6.41 K/ul (4.2-10.2)
[2022-03-15 19:52] LABS: ALANINE AMINOTRANSFERASE 21.4 U/L (0-50); ALBUMIN 4.56 g/dL (3.5-5.0); ALKALINE PHOSPHATASE 125.2 U/L (38-126); ASPARTATE AMINO TRANSFERASE 24.9 U/L (17-59); BILIRUBIN,TOTAL 0.59 mg/dL (0.2-1.3); BLOOD UREA NITROGEN 15.6 mg/dL (9-20); CALCIUM 9.39 mg/dL (8.4-10.2); CARBON DIOXIDE 25.9 mmol/L (22-30.0); CHLORIDE 100.1 mmol/L (98-107); CREATININE 0.82 mg/dL (0.60-1.10); GLUCOSE 429.3 mg/dL (74-106); POTASSIUM 4.02 mmol/L (3.5-5.1); SODIUM 135.8 mmol/L (134.5-145); TOTAL PROTEIN 7.73 g/dL (6.3-8.2); TROPONIN I < 0.012 ng/ml (0.0000-0.120)
[2022-03-15] MEDS ORDERED: PLAVIX PO ONE (19:59)
--- NOTE | 2022-03-15 20:19 | DI ---
EXAM: AP chest. HISTORY: Chest pain. FINDINGS The bones are unremarkable. The cardiac silhouette and pulmonary vasculature are within normal limit s. The costophrenic angles are clear. No infiltrate or consolidation. There are calcified granulom as. Impression: No acute cardiopulmonary disease.
[2022-03-15] MEDS ORDERED: HUMULIN R IVP ONE (20:40)
[2022-03-15] MEDS ORDERED: NITROSTAT SL PRN (21:05)
[2022-03-15] MEDS ORDERED: TYLENOL PO PRN (21:05)
[2022-03-15] MEDS ORDERED: ATROPINE SULFATE PFS IVP PRN (21:05)
[2022-03-15 21:42] LABS: CREATINE KINASE 51.7 U/L (55-170)
[2022-03-15 22:00] LABS: TROPONIN I < 0.012 ng/ml (0.0000-0.120)
[2022-03-15 22:06] LABS: BILIRUBIN,URINE Negative (NEGATIVE); CLARITY,URINE Clear (CLEAR); COLOR,URINE Yellow (YELLOW); KETONES,URINE Negative (NEGATIVE); LEUKOCYTE ESTERASE ,URINE Negative (NEGATIVE); NITRITE,URINE Negative (NEGATIVE); PH,URINE 5.5 (5-9); PROTEIN,URINE Negative (NEGATIVE); URINE, BLOOD Negative (NEGATIVE); UROBILINOGEN,URINE 0.2 (0.2)
[2022-03-15 22:07] LABS: GLUCOSE, URINE (UA) 2+ (NEGATIVE)
[2022-03-15 22:39] VITALS: BMI 39.2
[2022-03-16 05:37] LABS: BASOPHILS # (AUTO) 0.1 K/uL (0-0.2); BASOPHILS % (AUTO) 0.8 % (0.0-3.0); EOSINOPHILS # (AUTO) 0.2 K/ul (0.0-0.7); EOSINOPHILS % (AUTO) 3.2 % (0.0-7.0); HEMATOCRIT 39.5 % (42.0-52.0); HEMOGLOBIN 12.2 g/dl (14.0-18.0); IMMATURE GRANULOCYTE % (AUTO) 0.3 % (0.0-5.0); LYMPHOCYTES # (AUTO) 1.7 K/uL (0.60-3.4); LYMPHOCYTES % (AUTO) 27.5 (10.0-50.0); MEAN CORPUSCULAR HEMOGLOBIN 23.6 pg (27.0-31.0); MEAN CORPUSCULAR HGB CONC 30.9 (31.8-35.4); MEAN CORPUSCULAR VOLUME 76.4 fl (80.0-94.0); MONOCYTES # (AUTO) 0.7 K/uL (0.4-2.0); MONOCYTES % (AUTO) 10.8 (0-10); NEUTROPHILS # (AUTO) 3.5 K/ul (2.0-6.9); NEUTROPHILS % (AUTO) 57.4 % (42.2-75.2); PLATELET COUNT 189 10^3/uL (140-440); RDW COEFFICIENT OF VARIATION 14.1 % (11.6-14.8); RED BLOOD COUNT 5.17 10^6/ul (4.70-6.10); WHITE BLOOD COUNT 6.01 K/ul (4.2-10.2)
[2022-03-16 05:53] LABS: ALBUMIN 4.12 g/dL (3.5-5.0); ALKALINE PHOSPHATASE 76.5 U/L (38-126); ASPARTATE AMINO TRANSFERASE 25.8 U/L (17-59); BILIRUBIN,TOTAL 0.55 mg/dL (0.2-1.3); BLOOD UREA NITROGEN 14.1 mg/dL (9-20); CALCIUM 9.07 mg/dL (8.4-10.2); CARBON DIOXIDE 31.9 mmol/L (22-30.0); CHLORIDE 102.3 mmol/L (98-107); CREATINE KINASE 45.4 U/L (55-170); CREATININE 0.77 mg/dL (0.60-1.10); POTASSIUM 3.89 mmol/L (3.5-5.1); SODIUM 136.7 mmol/L (134.5-145); TOTAL PROTEIN 6.99 g/dL (6.3-8.2)
[2022-03-16 05:59] LABS: TROPONIN I < 0.012 ng/ml (0.0000-0.120)
[2022-03-16] MEDS: HUMULIN R SUBCUT PRN ×2 (06:30→11:30)
[2022-03-16] MEDS ORDERED: ASPIRIN CHEWABLE PO SCH (08:30)
[2022-03-16] MEDS ORDERED: COREG PO SCH (08:30)
[2022-03-16] MEDS ORDERED: ZESTRIL PO SCH (09:00)
[2022-03-16] MEDS ORDERED: PLAVIX PO SCH (09:00)
--- NOTE | 2022-03-16 09:33 | PCM.PROG ---
Date Seen by Provider: 03/16/22 Time Seen by Provider: 09:29 Subjective: Patient denies chest pain. He is feeling well and is requesting to go home. He reports that he has had some increased stress recently and believes that this accounted for the chest pain. Objective: Vitals: T=97.9 F, P=64, R=16, LA=465/95, SPO2=97 Patient appears to be comfortable. He is breathing easily. No diaphoresis. HEENT: [] Neck: [] No JVD. Lungs: [] Chest clear and breath tones equal. CVS: [] RRR. No peripheral edema. Abdomen: [] Extremities: [] Neurological: [] Skin: [] Lab/Tests/Diagnostic Imaging: [] (1) Chest pain: Status: Acute Code(s): R07.9 - Chest pain, unspecified SNOMED Code(s): 30433964 Assessment: Troponin level this morning was normal. Patient asymptomatic. Acute cardiac event ruled out. Plan: Patient discharged to home in stable condition. He was instructed to follow up with his primary care provider this week.
--- NOTE | 2022-03-16 09:36 | PCM.DC ---
Final Diagnosis: Chest pain Physical Exam Appearance: Well-appearing, No pain distress, Obese and Other (Breathing easily. No diaphoresis. ) Ill-appearing: None Pain Distress: None Eyes: Not Examined ENT: Not Examined Neck: Supple (No JVD.) Respiratory: Airway patent, Breath sounds clear and Breath sounds equal Cardiovascular: RRR, No rub and No murmur GI/: Soft, Nontender, No masses and Bowel sounds normal Musculoskeletal: Not Examined Skin: Warm and Dry Neurological: Alert and Oriented Psychiatric: Affect appropriate and Mood appropriate (1) Chest pain: Status: Acute Code(s): R07.9 - Chest pain, unspecified SNOMED Code(s): 54703589 Reason for Hospitalization: Patient admitted with chest pain to rule out acute myocardial event. Prognosis/Condition at Discharge: Condition at discharge to home was good. Medications at Discharge: Patient to continue his prior home medications. Lab/Diagnostics: AM troponin level was normal. Education Provided to Patient and Family: Chest pain Follow-ups: Patient instructed to follow up with his primary care provider this week. Discharge Disposition: Home Hospital Course: Patient admitted with chest pain to rule out acute myocardial event. His chest pain resolved and his repeat troponin levels were normal. Plan: Patient discharged to home in good condition. He is to follow up with his primary care provider this week.
[2022-03-16 09:42] VITALS: BP 164/97; TEMP 97
[2022-03-16] MEDS ORDERED: LIPITOR PO SCH (21:00)
== END 2022-03-16 13:12 | disposition home or self-care (01) ==
LOC: ED 19:20 → MEDSURG A 19:20
PROVIDERS: ADMIT Emergency Medicine; ATTEND Surgery
DX: Z79.4 Long term (current) use of insulin; I25.2 Old myocardial infarction; E11.65 Type 2 diabetes mellitus with hyperglycemia; Z95.5 Presence of coronary angioplasty implant and graft; Z79.899 Other long term (current) drug therapy; I10 Essential (primary) hypertension; R07.9 Chest pain, unspecified; Z79.82 Long term (current) use of aspirin; Z20.822 Contact with and (suspected) exposure to COVID-19; Z51.81 Encounter for therapeutic drug level monitoring